=== PATIENT | female | born 1975 | race Asian ===

== ENCOUNTER 2017-05-23 10:53 | Emergency (ER) | payer OTHER ==
[~2017-05-23] VITALS: Ht 170.2 cm; Wt 63.5 kg
[2017-05-23 11:12] VITALS: BP 129/76
--- NOTE | 2017-05-23 11:18 | NUR ---
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
[2017-05-23 11:52] LABS: THYROID STIMULATING HORMONE < 0.007 uIU/mL (0.358-3.74)
[2017-05-23] MEDS ORDERED: IBUPROFEN 600 MG TABLET PO ONE ×2 (12:21→12:30)
--- NOTE | 2017-05-23 12:23 | NUR ---
MOTRIN 600MG GIVEN PO PER ERMD VERBAL ORDER.
== END 2017-05-23 12:27 | disposition home or self-care (01) ==
LOC: ER 10:54
DX: E07.9 Disorder of thyroid, unspecified (principal)
CPT/HCPCS: 36415; 84439-TC; 84443-TC; A4606; Z7610